=== PATIENT | male | born 2000 | race American Indian/Alaskan Native ===

== ENCOUNTER 2021-09-19 02:20 | Emergency (ER) | payer SELFPAY ==
[2021-09-19 03:08] VITALS: BP 101/53
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
== END 2021-09-19 07:00 | disposition home or self-care (01) ==
LOC: ED 02:20
DX: S61.210A Laceration without foreign body of right index finger without damage to nail, initial encounter (principal); W26.0XXA Contact with knife, initial encounter; Y93.89 Activity, other specified; Y92.89 Other specified places as the place of occurrence of the external cause; Y99.8 Other external cause status
CPT/HCPCS: 99282

== ENCOUNTER 2021-10-08 21:54 | Emergency (ER) | payer SELFPAY ==
[2021-10-08 23:12] VITALS: BP 97/52
== END 2021-10-09 05:00 | disposition left against medical advice (07) ==
LOC: ED 21:54
DX: S61.210A Laceration without foreign body of right index finger without damage to nail, initial encounter (principal); Z53.21 Procedure and treatment not carried out due to patient leaving prior to being seen by health care provider; X58.XXXA Exposure to other specified factors, initial encounter; Y93.89 Activity, other specified; Y92.89 Other specified places as the place of occurrence of the external cause; Y99.8 Other external cause status